=== PATIENT | female | born 1960 | race Two or more races ===

== ENCOUNTER 2022-10-22 18:07 | Emergency (ER) | payer SELFPAY ==
[~2022-10-22] VITALS: Ht 165.1 cm; Wt 83.9 kg
[2022-10-22 18:17] VITALS: BP 134/57; RESP 19; O2SAT 98
[2022-10-22 18:31] LABS: Basophils # (auto) 0.1 10 ^3/uL (0-0.2); Eosinophils # (auto) 0.1 10 ^3/uL (0-0.8); Eosinophils % (auto) 1.5 % (0.0-7.0); Hematocrit 41.1 % (36.0-46.0); Lymphocytes # (auto) 2.5 10 ^3/uL (0.4-5.4); Lymphocytes % (auto) 26.7 % (10.0-50.0); Mean Corpuscular Hemoglobin 31.1 pg (28.0-32.0); Mean Corpuscular Hgb Conc. 33.9 g/dL (32.0-36.0); Mean Corpuscular Volume 91.6 fL (80.0-100.0); Monocytes % (auto) 10.2 % (0.0-12.0); Neutrophils # (auto) 5.7 10 ^3/uL (1.6-8.6); Neutrophils % (auto) 60.6 % (37.0-80.0); Nucleated Red Blood Cells % 0.1 %; Red Blood Cells 4.49 10^6/uL (4.0-5.20); Red Cell Distribution Width 14.2 % (11.8-14.3); White Blood Cell 9.4 10^3/uL (4.4-10.8)
[2022-10-22 18:41] LABS: Urine Bacteria NONE SEEN /hpf (None Seen); Urine Blood Negative /uL (Negative); Urine Clarity Clear (Clear); Urine Color Colorless (Yellow); Urine Protein, UAD TRACE (Negative); Urine Specific Gravity 1.002 (1.001-1.035); Urine Urobilinogen Normal (Negative); Urine WBC 2 /hpf (0 - 5)
[2022-10-22 18:51] LABS: Alanine Aminotransferase 38 U/L (7-40); Albumin 4.5 g/dL (3.2-4.8); Alkaline Phosphatase 82 U/L (46-116); Anion Gap 8.1 (5-15); Aspartate Aminotransferase 27 U/L (13-40); BUN/Creatinine Ratio 8.8 (10.0-20.0); Blood Urea Nitrogen 10 mg/dL (9-23); Calcium 9.3 mg/dL (8.5-10.1); Carbon Dioxide 24.9 mmol/L (20-30); Chloride 106 mmol/L (98-107); Glucose 90 mg/dL (74-106); Potassium 3.9 mmol/L (3.5-5.1); Sodium 139 mmol/L (136-145)
[2022-10-22 18:52] LABS: Bilirubin, Total 0.4 mg/dL (0.2-1.0); Total Protein 7.8 g/dL (5.7-8.2)
[2022-10-22] MEDS ORDERED: DICY10CA PO (20:09)
[2022-10-22] MEDS ORDERED: ZOFR4T PO (20:09)
[2022-10-22] MEDS ORDERED: FAMO20TA10 PO (20:09)
[2022-10-22] MEDS ORDERED: DICYCLOMINE HCL (10MG/ML) 2 ML AMPULE IM ONE (20:15)
[2022-10-22] MEDS ORDERED: FAMOTIDINE 20 MG TAB PO ONE (20:15)
[2022-10-22] MEDS ORDERED: ONDANSETRON ODT 4 MG TAB PO ONE (20:15)
[2022-10-22 20:25] VITALS: PULSE 69
== END 2022-10-22 21:58 | disposition home or self-care (01) ==
LOC: ER 18:07
DX: D35.00 Benign neoplasm of unspecified adrenal gland (principal); N28.1 Cyst of kidney, acquired; K43.9 Ventral hernia without obstruction or gangrene; N39.0 Urinary tract infection, site not specified; R10.32 Left lower quadrant pain; K42.9 Umbilical hernia without obstruction or gangrene; R19.7 Diarrhea, unspecified; E11.9 Type 2 diabetes mellitus without complications; I10 Essential (primary) hypertension; Z79.899 Other long term (current) drug therapy
CPT/HCPCS: 36415; 74176; 80053; 81001; 83690; 84484; 85025; 96372; 99285; J0500; Q0162

== ENCOUNTER 2022-11-22 11:30 | Emergency (ER) | payer MEDICAID ==
[~2022-11-22] VITALS: Ht 165.1 cm; Wt 86.0 kg
[~2022-11-22 11:30] MED LIST: DICY10CA PO; FAMO20TA10 PO; ZOFR4T PO
[2022-11-22 12:13] VITALS: BP 141/81; PULSE 58; RESP 18; O2SAT 96
== END 2022-11-22 14:53 | disposition left against medical advice (07) ==
LOC: ER 11:30
DX: M79.674 Pain in right toe(s) (principal)

== ENCOUNTER 2022-12-17 20:51 | Emergency (ER) | payer MEDICAID ==
[~2022-12-17] VITALS: Ht 165.1 cm; Wt 84.5 kg
[2022-12-17 21:36] LABS: Basophils # (auto) 0.2 10 ^3/uL (0-0.2); Basophils % (auto) 1.5 % (0.0-2.0); Eosinophils # (auto) 0.1 10 ^3/uL (0-0.8); Eosinophils % (auto) 0.9 % (0.0-7.0); Hematocrit 40.9 % (36.0-46.0); Hemoglobin 13.5 g/dL (12.2-16.2); Lymphocytes # (auto) 1.5 10 ^3/uL (0.4-5.4); Mean Corpuscular Hgb Conc. 32.9 g/dL (32.0-36.0); Mean Corpuscular Volume 94.3 fL (80.0-100.0); Monocytes # (auto) 1.1 10 ^3/uL (0-1.3); Monocytes % (auto) 10.6 % (0.0-12.0); Neutrophils # (auto) 7.4 10 ^3/uL (1.6-8.6); Nucleated Red Blood Cells % 0.1 %; Red Blood Cells 4.34 10^6/uL (4.0-5.20); Red Cell Distribution Width 14.6 % (11.8-14.3); White Blood Cell 10.3 10^3/uL (4.4-10.8)
[2022-12-17 21:56] LABS: Alanine Aminotransferase 23 U/L (7-40); Albumin 4.7 g/dL (3.2-4.8); Alkaline Phosphatase 83 U/L (46-116); Anion Gap 8 (5-15); Aspartate Aminotransferase 11 U/L (13-40); BUN/Creatinine Ratio 9.4 (10.0-20.0); Bilirubin, Total 0.5 mg/dL (0.2-1.0); Blood Urea Nitrogen 18 mg/dL (9-23); Calcium 9.5 mg/dL (8.7-10.4); Carbon Dioxide 24 mmol/L (20-30); Chloride 108 mmol/L (98-107); Glucose 118 mg/dL (74-106); Sodium 140 mmol/L (136-145)
[2022-12-17 23:03] LABS: Urine Bacteria FEW /hpf (None Seen); Urine Blood TRACE /uL (Negative); Urine Clarity Clear (Clear); Urine Protein, UAD TRACE (Negative); Urine Specific Gravity 1.005 (1.001-1.035); Urine Urobilinogen Normal (Negative); Urine WBC 4 /hpf (0 - 5)
[2022-12-17 23:08] LABS: Urine Color Straw (Yellow)
[2022-12-18] MEDS ORDERED: ONDANSETRON ODT 4 MG TAB PO ONE
[2022-12-18] MEDS ORDERED: FAMOTIDINE 20 MG TAB PO ONE
[2022-12-18] MEDS ORDERED: DICYCLOMINE HCL 10 MG CAP PO ONE
[2022-12-18] MEDS: HYDROcodone-ACET 10/325MG TAB PO ONE ×2 (00:49→00:52)
[2022-12-18 04:09] VITALS: BP 138/77; PULSE 62; RESP 16; TEMP 98.2; O2SAT 99
== END 2022-12-18 03:18 | disposition home or self-care (01) ==
LOC: ER 20:51
DX: I12.9 Hypertensive chronic kidney disease with stage 1 through stage 4 chronic kidney disease, or unspecified chronic kidney disease (principal); E11.22 Type 2 diabetes mellitus with diabetic chronic kidney disease; N18.9 Chronic kidney disease, unspecified; R07.89 Other chest pain; E11.65 Type 2 diabetes mellitus with hyperglycemia; E87.8 Other disorders of electrolyte and fluid balance, not elsewhere classified; Z79.899 Other long term (current) drug therapy
CPT/HCPCS: 36415; 71046; 80053; 81001; 83735; 84484; 85025; 93005; 99285; J0500; Q0162

== ENCOUNTER 2023-09-16 13:11 | Emergency (ER) | payer MEDICAID ==
[~2023-09-16] VITALS: Ht 165.1 cm; Wt 83.1 kg
[2023-09-16 14:18] VITALS: BP 111/68; PULSE 65; RESP 18; TEMP 98.1; O2SAT 96
[2023-09-16 14:27] LABS: COVID19 ANTIGEN SOFIA FIA NEGATIVE (NEGATIVE)
[2023-09-16] MEDS ORDERED: AMOX875T3 PO (14:48)
[2023-09-16] MEDS ORDERED: ACET-1080 PO (14:48)
[2023-09-16] MEDS: cefTRIAXone SOD 1,000 MG VL IM ONE (14:55)
== END 2023-09-16 15:12 | disposition home or self-care (01) ==
LOC: ER 13:11
DX: J03.90 Acute tonsillitis, unspecified (principal); H65.03 Acute serous otitis media, bilateral; I10 Essential (primary) hypertension; Z79.899 Other long term (current) drug therapy; Z20.822 Contact with and (suspected) exposure to COVID-19
CPT/HCPCS: 36415; 87426; 96372; 99283; J0696

== ENCOUNTER 2024-03-15 10:13 | Inpatient (IN) | payer MEDICAID ==
[~2024-03-15] VITALS: Ht 165.1 cm; Wt 80.0 kg
[~2024-03-15 10:13] MED LIST changes: +ACET-1080 PO; +AMLO1TAB22 PO; +AMOX875T3 PO; +MAGN400T40 PO; +METO-158 PO; +ROSU20TA14 PO
--- NOTE | 2024-03-15 10:24 | ECG ---
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
--- NOTE | 2024-03-15 10:39 | ED.PDOC ---
HPI Comments 63y M who presents to the ED for chief complaint of chest pain. Pt states she has been having chest pain since 9 AM. Pt states the pain is located by the L side of her chest, constant, non-radiating, with no associated exacerbating or relieving factors. Pt has associated shortness of breath but otherwise denies any other symptoms. Pt in the ED, has noted elevated blood pressure of 159/89 with all other vitals in normal range. Pt otherwise denies any other symptoms at this time. Chief Complaint: Chest Pain Time Seen by MD: 10:35 Primary Care Provider: JEROD Reviewed Notes: Nurses Notes, Medications, Allergies Allergies: Coded Allergies: NO KNOWN ALLERGIES (Unverified , 10/22/22) Home Meds Active Scripts Acetaminophen (Tylenol 8 Hour Arthritis) 650 Mg Tab, 650 MG PO TID, #30 TAB Prov:SELAM CURTIS 09/16/23 Amoxicillin Trihydrate (Amoxicillin) 875 Mg Tab, 1 TAB PO BID, #20 TAB Prov:SELAM CURTIS 09/16/23 Famotidine (PEPCID TABLET) 20 Mg Tb, 1 TAB PO BID for 30 Days, #60 TAB 5 Refills Prov:KRISTIN ECHOLS CIVIL DRAFTSMAN 10/22/22 Ondansetron Odt 4MG Tab (ZOFRAN PO) 4 Mg Tb, 1 TAB PO Q8HR, #20 TAB ODT TAB-DISSOLVE IN MOUTH, THEN SWALLOW as needed for nausea vomiting Prov:KRISTIN ECHOLS CIVIL DRAFTSMAN 10/22/22 Dicyclomine Hcl (BENTYL CAPSULE) 10 Mg Cp, 1 CAP PO TID, #20 CAP 11 Refills abdominal cramping Prov:KRISTIN ECHOLS CIVIL DRAFTSMAN 10/22/22 Reported Medications Magnesium Oxide (MAGNESIUM OXIDE) 400 Mg Tab, 1 TAB PO DAILY, #30 TAB 5 Refills 09/03/23 Metoprolol Tartrate (Metoprolol Tartrate) 50 Mg Tab, 50 MG PO BID for 30 Days, MG 09/03/23 Amlodipine Besylate (Amlodipine Besylate) 5 Mg Tab, 5 MG PO DAILY for 30 Days, MG 09/03/23 Rosuvastatin Calcium (Crestor) 20 Mg Tab, 1 TAB PO DAILY, #30 TAB 5 Refills 09/03/23 Information Source: Patient Mode of Arrival: Ambulatory Brought in by: spouse Severity: Moderate Timing: Hours Duration: Since onset Prehospital treatment: None Location: Chest (L) Radiation: No Radiation Quality: Pressure Onset: At Rest Cardiac Risk Factors: Smoker, HTN PE Risk Factors: None History of: None Modifying Factors: Nothing Associated Signs and Symptoms: SOB Past Medical History PAST MEDICAL HISTORY: COPD, HTN Surgical History: Hernia Repair 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 Family History Family History: Reviewed,noncontributory to illness Social History Smoker: Cigarettes Alcohol: Occasionally Drugs: Denies Drug Use Lives In: Home Constitutional: denies: chills, diaphoresis, fatigue, fever, malaise, sweats, weakness, others EENTM: denies: blurred vision, double vision, ear bleeding, ear discharge, ear drainage, ear pain, ear ringing, eye pain, eye redness, hearing loss, mouth pain, mouth swelling, nasal discharge, nose bleeding, nose congestion, nose pain, photophobia, tearing, throat pain, throat swelling, voice changes, others Respiratory: reports: shortness of breath; denies: cough, hemoptysis, orthopnea, SOB at rest, SOB with excertion, stridor, wheezing, others Cardiovascular: reports: chest pain; denies: dizzy spells, diaphoresis, Dyspnea on exertion, edema, irregular heart beat, left arm pain, lightheadedness, palpitations, PND, syncope, others Gastrointestinal: denies: abdomen distended, abdominal pain, blood streaked bowels, constipated, diarrhea, dysphagia, difficulty swallowing, hematemesis, melena, nausea, poor appetite, poor fluid intake, rectal bleeding, rectal pain, vomiting, others Genitourinary: denies: abnormal vagina bleeding, burning, dyspareunia, dysuria, flank pain, frequency, hematuria, incontinence, pain, , vagina discharge, urgency, others Neurological: denies: dizziness, fainting, headache, left sided numbness, left sided weakness, numbness, paresthesia, pre-existing deficit, right sided numbness, right sided weakness, seizure, speech problems, tingling, tremors, weakness, others Musculoskeletal: denies: back pain, gout, joint pain, joint swelling, muscle pain, muscle stiffness, neck pain, others Integumetry: denies: bruises, change in color, change in hair/nails, dryness, laceration, lesions, lumps, rash, wounds, others Allergic/Immunocompromised: denies: Difficulty Healing, Frequent Infections, Hives, Itching, others Hematologic/Lymphatic: denies: anemia, blood clots, easy bleeding, easy bruising, swollen glands, others Endocrine: denies: excessive hunger, excessive sweating, excessive thirst, excessive urination, flushing, intolerance to cold, intolerance to heat, unexplained weight gain, unexplained weight loss, others Psychiatric: denies: anxiety, bipolar disorder, depression, hopeless, panic disorder, schizophrenia, sleepless, suicidal, others All Other Systems: Reviewed and Negative Physical Exam General Appearance: Mild Distress HEENT: Normal ENT Inspection, Pharynx Normal, TMs Normal Neck: Full Range of Motion, Non-Tender, Normal, Normal Inspection Respiratory: Chest Non-Tender, Lungs Clear, No Accessory Muscle Use, No Respiratory Distress, Normal Breath Sounds Cardiovascular: Bradycardia, No Edema, No JVD, No Murmur, No Gallop Breast Exam: Deferred Gastrointestinal: No Organomegaly, Non Tender, No Pulsatile Mass, Normal Bowel Sounds, Soft Genitalia: Deferred Pelvic: Deferred Rectal: Deferred Extremities: No calf tenderness, Normal capillary refill, Normal inspection, Normal range of motion, Non-tender, No pedal edema Musculoskeletal : Apperance: Normal Neurologic: Alert, sexual assault nurse II-XII nml as Tested, No Motor Deficits, Normal Affect, Normal Mood, No Sensory Deficits Cerebellar Function: Normal Reflexes: Normal Skin: Dry, Normal Color, Warm Lymphatic: No Adenopathy EKG EKG : Pulse Rate (adult): 55 [place]: Normal Cardiac Rhythm: NSR Block: None Hypertrophy: LVH ST: Normal Was a procedure done? Was a procedure done?: No CP Differential Dx Differential Diagnosis: Angina, Anxiety / Panic Attack, VT, Pulmonary Embolus, PVC's Differential Diagnosis: HTN Essential, HTN Accelerated Differential Diagnosis: Chest Wall Pain, Pericarditis X-Ray, Labs, Meds, VS Vital Signs Date Time Temp Pulse Resp B/P (MAP) Pulse Ox O2 Delivery O2 Flow Rate FiO2 03/15/24 11:12 51 03/15/24 11:00 58 16 99 Room Air 03/15/24 11:00 98.4 58 16 157/85 (109) 99 98.4 03/15/24 10:39 55 03/15/24 10:24 98.1 62 18 159/89 (112 98 Lab Test 03/15/24 11:16 03/15/24 10:50 03/15/24 10:20 Range/Units Troponin I High Sensitivity 5 5 </=34 ng/L Urine Color Yellow Yellow Urine Clarity Clear Clear Urine pH 5.5 5.0-9.0 Urine Specific [place] 1.020 1.001-1.035 Urine Protein Negative Negative Urine Ketones Negative Negative Urine Blood Negative Negative /uL Urine Nitrite Negative Negative Urine Bilirubin Negative Negative Urine Urobilinogen Normal Negative mg/dL Urine Leukocyte Esterase 2+ Negative /uL Urine RBC 1 0 - 4 /hpf Urine WBC 10 0 - 5 /hpf Urine Squamous Epithelial Cells Few <5 /hpf Urine Bacteria None seen None Seen /hpf Urine Mucus Few None Seen Urine Glucose Normal Normal mg/dL White Blood Count 5.2 4.4-10.8 10^3/uL Red Blood Count 4.61 4.0-5.20 10^6/uL Hemoglobin 14.6 12.2-16.2 g/dL Hematocrit 43.5 36.0-46.0 % Mean Corpuscular Volume 94.3 80.0-100.0 fL Mean Corpuscular Hemoglobin 31.6 28.0-32.0 pg Mean Corpuscular Hemoglobin Concent 33.5 32.0-36.0 g/dL Red Cell Distribution Width 14.3 11.8-14.3 % Platelet Count 280 140-450 10^3/uL Mean Platelet Volume 9.0 6.9-10.8 fL Neutrophils (%) (Auto) 50.0 37.0-80.0 % Lymphocytes (%) (Auto) 35.4 10.0-50.0 % Monocytes (%) (Auto) 9.6 0.0-12.0 % Eosinophils (%) (Auto) 2.9 0.0-7.0 % Basophils (%) (Auto) 2.1 H 0.0-2.0 % Neutrophils # (Auto) 2.6 1.6-8.6 10 ^3/uL Lymphocytes # (Auto) 1.8 0.4-5.4 10 ^3/uL Monocytes # (Auto) 0.5 0-1.3 10 ^3/uL Eosinophils # (Auto) 0.1 0-0.8 10 ^3/uL Basophils # (Auto) 0.1 0-0.2 10 ^3/uL Nucleated Red Blood Cells 0.2 % Prothrombin Time 10.8 9.3-11.8 sec Prothrombin Time INR 1.02 0.9-1.15 Activated Partial Thromboplast Time 26.4 24.5-34.5 SEC D-Dimer, Quantitative 0.35 0.0-0.49 mg/L FEU Sodium Level 139 136-145 mmol/L Potassium Level 4.1 3.5-5.1 mmol/L Chloride Level 108 H 98-107 mmol/L Carbon Dioxide Level 25 20-31 mmol/L Anion Gap 6 5-15 Blood Urea Nitrogen 9 9-23 mg/dL Creatinine 0.92 0.550-1.02 mg/dL Glomerular Filtration Rate Calc 70 >90 mL/min BUN/Creatinine Ratio 9.8 L 10.0-20.0 Serum Glucose 107 H 74-106 mg/dL Calcium Level 10.0 8.7-10.4 mg/dL Magnesium Level Pending Total Bilirubin 0.5 0.2-1.0 mg/dL Aspartate Amino Transferase (AST) 9 L 13-40 U/L Alanine Aminotransferase (ALT) 15 7-40 U/L Alkaline Phosphatase 80 46-116 U/L Total Protein 7.8 5.7-8.2 g/dL Albumin 4.4 3.2-4.8 g/dL Current Medications Medications (Trade) Dose Ordered Sig/Antonio Route Start Time Stop Time Status Last Admin Aspirin 162 mg ONCE ONCE PO 03/15/24 10:30 03/15/24 10:31 DC 03/15/24 10:54 PROCEDURE(s): CXRP - CHEST PORTABLE IMPRESSION: No acute intrathoracic abnormality. The patient was given aspirin 162 mg p.o. The CBC is within normal limits The chemistry panel is within normal limits. The urine test is positive for UTI The patient was being given Rocephin 1 g IV piggyback for the infection A cardiology consult will be obtained. The patient was being admitted at this time. Images Reviewed?: Images reviewed and evaluated by me Time of 1ST Reevaluation: 11:05 Reevaluation 1ST: Unchanged Time of 2ND Reevaluation: 12:17 Reevaluation 2ND: Unchanged Patient Education/Counseling: Diagnosis, Treatment, Prognosis Family Education/Counseling: Diagnosis, Treatment, Prognosis Additional Information - I reviewed the following notes from patient's past medical encounters: - The following tests were ordered, and results were reviewed by me: (Labs, X- Ray, EKG): cbc, cmp, chest x-ray, PTPTT, UA, troponin x3, EKG x3,D-dimer, - Additional information was gathered from interviewing the following independent Historian: (Family, Other Providers, EMT): spouse - I reviewed and agreed with the following test results read by other provider: (X-ray, CT, US): radiologist - I discussed treatments and results with medical personnel and: (consultants, family): spouse Departure 1 Departure Time of Disposition: 12:17 Impression: Primary Impression: Acute myocardial ischemia Additional Impressions: Symptomatic bradycardia Urinary tract infection Qualified Codes: N30.00 - Acute cystitis without hematuria Disposition: ADMITTED INPATIENT Admit to: Tele Condition: Fair Critical Care Note Critical Care Time?: Yes (35 min-critical care time only) Stability Stability form required: Yes Unstable for transfer: Telemetry monitoring (Telemetry monitoring required), ED Physician Assesment (Clinical assesment) Heart Score Heart Score: Heart Score Response (Comments) Value History Slightly Suspicious 0 EKG Normal 0 Age 45-64 1 Risk Factors 1 or 2 risk factors 1 Troponin Normal limit 0 Total 2 I personally scribed for SHAYAN IVY MD ([email or web address]) on 03/15/24 at 10:39. Electronically submitted by Lacy Varghese ([email or web address]). I personally scribed for SHAYAN IVY MD ([email or web address]) on 03/15/24 at 11:19. Electronically submitted by Lacy PAZ). SHAYAN IVY MD Mar 15, 2024 10:39
[2024-03-15 10:53] LABS: Basophils # (auto) 0.1 10 ^3/uL (0-0.2); Basophils % (auto) 2.1 % (0.0-2.0); Eosinophils # (auto) 0.1 10 ^3/uL (0-0.8); Eosinophils % (auto) 2.9 % (0.0-7.0); Hematocrit 43.5 % (36.0-46.0); Hemoglobin 14.6 g/dL (12.2-16.2); Lymphocytes # (auto) 1.8 10 ^3/uL (0.4-5.4); Lymphocytes % (auto) 35.4 % (10.0-50.0); Mean Corpuscular Hemoglobin 31.6 pg (28.0-32.0); Mean Corpuscular Hgb Conc. 33.5 g/dL (32.0-36.0); Mean Corpuscular Volume 94.3 fL (80.0-100.0); Monocytes # (auto) 0.5 10 ^3/uL (0-1.3); Monocytes % (auto) 9.6 % (0.0-12.0); Neutrophils # (auto) 2.6 10 ^3/uL (1.6-8.6); Nucleated Red Blood Cells % 0.2 %; Platelet Count (auto) 280 10^3/uL (140-450); Red Blood Cells 4.61 10^6/uL (4.0-5.20); Red Cell Distribution Width 14.3 % (11.8-14.3); White Blood Cell 5.2 10^3/uL (4.4-10.8)
[2024-03-15] MEDS: ASPirin 81 mg TAB PO ONE (10:54)
--- NOTE | 2024-03-15 10:54 | DVH ---
XY CHEST PORTABLE, HISTORY: CHEST PAIN COMPARISON: None None TECHNICAL DATA: 1 view of the chest was obtained. FINDINGS: Lines and tubes: None Cardiomediastinal silhouette: normal Pulmonary vasculature: normal Lung expansion: normal Lung airspace: normal Lung interstitium: normal Pleura: normal Pneumothorax: no Bones: Unremarkable Other: no IMPRESSION: No acute intrathoracic abnormality.
[2024-03-15 10:56] LABS: Urine Bacteria None Seen /hpf (None Seen)
[2024-03-15 11:11] LABS: INR 1.02 (0.9-1.15); Partial Thromboplastin Time 26.4 SEC (24.5-34.5); Prothrombin Time 10.8 sec (9.3-11.8)
[2024-03-15 11:14] LABS: Alanine Aminotransferase 15 U/L (7-40); Albumin 4.4 g/dL (3.2-4.8); Alkaline Phosphatase 80 U/L (46-116); Anion Gap 6 (5-15); Aspartate Aminotransferase 9 U/L (13-40); BUN/Creatinine Ratio 9.8 (10.0-20.0); Bilirubin, Total 0.5 mg/dL (0.2-1.0); Blood Urea Nitrogen 9 mg/dL (9-23); Carbon Dioxide 25 mmol/L (20-31); Chloride 108 mmol/L (98-107); Glucose 107 mg/dL (74-106); Potassium 4.1 mmol/L (3.5-5.1); Sodium 139 mmol/L (136-145); Total Protein 7.8 g/dL (5.7-8.2)
[2024-03-15 11:17] LABS: Urine Blood Negative /uL (Negative); Urine Clarity Clear (Clear); Urine Color Yellow (Yellow); Urine Mucus FEW (None Seen); Urine Protein, UAD Negative (Negative); Urine Squamous Epithelial Cell FEW /hpf (<5); Urine Urobilinogen Normal (Negative); Urine WBC 10 /hpf (0 - 5); Urine pH 5.5 (5.0-9.0)
[2024-03-15] MEDS ORDERED: MORPHINE SULFATE 4 MG/ML SYR/VIAL IV PRN (12:00)
[2024-03-15] MEDS ORDERED: ONDANSETRON HCL 4 MG/2 ML VIAL IV PRN (12:00)
[2024-03-15] MEDS ORDERED: NITROGLYCERIN 0.4 MG SL TAB SL PRN ×2 (12:00)
--- NOTE | 2024-03-15 12:00 | DVHHP2 ---
History of Present Illness Reason for Visit: chest pain History of Present Illness 63-year-old female past medical history hyperlipidemia COPD hypertension hernia repair chief complaint patient states at 9:00 a.m. this morning she did a stress and now she was complaining of chest pain midsternal pain she states it feels like a pressure pain that is off and on she states the pain is worse with movement nothing makes it better there was no calf pain or leg swelling she does complain of shortness of the breath. Patient does state this pain is also radiates to her back. When speaking with the patient she states he does see a solution design engineer and he diagnosed with a fast heart rate but he did not give her any medication for that. Patient states he has a cardiology visit March 20, 2024 very when evaluating patient's labs and imaging aspirin was given CBC was unremarkable CMP unremarkable glucose was 107 troponin was negative chest x-ray unremarkable. With these findings we will admit patient for further workup and care and consult Cardiology consult Past Medical History Hyperlipidemia COPD hypertension Past Surgical History Hernia repair Family History Reviewed, non-contributory to the management of this case. Past Social History Patient states smokes by history but off and on she does social smoking but denies drug or alcohol use Review of Systems Constitutional: No: Fever, Chills, Sweats, Weakness, Malaise, Other Eyes: No: Pain, Vision change, Conjunctivae inflammation, Eyelid inflammation, Other, Redness ENT: No: Ear pain, Ear discharge, Nose pain, Nose discharge, Nose congestion, Mouth pain, Mouth swelling, Throat pain, Throat swelling, Other Respiratory: No: Cough, Dry, Shortness of breath, SOB with excertion, Wheezing, Hemoptysis, Pleuritic Pain, Sputum, Wheezing, Other Cardiovascular: Chest Pain; No: Palpitations, Orthopnea, Paroxysmal Noc. Dyspnea, Edema, Lt Headedness, Other Gastrointestinal: No: Nausea, Vomiting, Abdominal Pain, Diarrhea, Constipation, Melena, Hematochezia, Other Genitourinary: No Dysuria, No Frequency, No Incontinence, No Hematuria, No Retention, No Other Musculoskeletal: No: other, neck pain, shoulder pain, arm pain, back pain, hand pain, leg pain, foot pain Skin: No: Rash, Lesions, Jaundice, Bruising, Other Neurological: No: Weakness, Numbness, Incoordination, Change in speech, Confusion, Seizures, Other Allergies: Coded Allergies: NO KNOWN ALLERGIES (Unverified , 10/22/22) Exam Vital Signs Vital Signs Date Time Temp Pulse Resp B/P (MAP) Pulse Ox O2 Delivery O2 Flow Rate FiO2 03/15/24 11:12 51 03/15/24 11:00 16 99 Room Air 03/15/24 11:00 98.4 157/85 (109) 98.4 General Appearance: Alert, Oriented X3, Cooperative, No acute distress HEENT: Atraumatic, PERRLA, EOMI, Mucous membr. moist/pink Respiratory: Clear to auscultation, Normal air movement Cardiovascular: Regular rate, Normal S1, Normal S2, No murmurs Abdominal: Normal bowel sounds, Soft, No tenderness, No hepatospenomegaly, No masses Extremities: No clubbing, No cyanosis, No edema, Normal pulses, No tenderness/swelling Skin: No rashes, No breakdown, No significant lesion Neuro: Normal gait, Normal speech, Strength at 5/5 X4 ext, Normal tone, Sensation intact, Cranial nerves 3-12 NL Psych/Mental Status: Mental status NL, Mood NL Labs/Xrays Chest x-ray unremarkable I reviewed labs, imaging CT scan abdomen pelvis, EKG and all diagnostic studies on this patient from ED records and the medical chart Labs Test 03/15/24 11:16 03/15/24 10:50 03/15/24 10:20 Range/Units Urine Color Yellow Yellow Urine Clarity Clear Clear Urine pH 5.5 5.0-9.0 Urine Specific [place] 1.020 1.001-1.035 Urine Protein Negative Negative Urine Ketones Negative Negative Urine Blood Negative Negative /uL Urine Nitrite Negative Negative Urine Bilirubin Negative Negative Urine Urobilinogen Normal Negative mg/dL Urine Leukocyte Esterase 2+ Negative /uL Urine RBC 1 0 - 4 /hpf Urine WBC 10 0 - 5 /hpf Urine Squamous Epithelial Cells Few <5 /hpf Urine Bacteria None seen None Seen /hpf Urine Mucus Few None Seen Urine Glucose Normal Normal mg/dL White Blood Count 5.2 4.4-10.8 10^3/uL Red Blood Count 4.61 4.0-5.20 10^6/uL Hemoglobin 14.6 12.2-16.2 g/dL Hematocrit 43.5 36.0-46.0 % Mean Corpuscular Volume 94.3 80.0-100.0 fL Mean Corpuscular Hemoglobin 31.6 28.0-32.0 pg Mean Corpuscular Hemoglobin Concent 33.5 32.0-36.0 g/dL Red Cell Distribution Width 14.3 11.8-14.3 % Platelet Count 280 140-450 10^3/uL Mean Platelet Volume 9.0 6.9-10.8 fL Neutrophils (%) (Auto) 50.0 37.0-80.0 % Lymphocytes (%) (Auto) 35.4 10.0-50.0 % Monocytes (%) (Auto) 9.6 0.0-12.0 % Eosinophils (%) (Auto) 2.9 0.0-7.0 % Basophils (%) (Auto) 2.1 H 0.0-2.0 % Neutrophils # (Auto) 2.6 1.6-8.6 10 ^3/uL Lymphocytes # (Auto) 1.8 0.4-5.4 10 ^3/uL Monocytes # (Auto) 0.5 0-1.3 10 ^3/uL Eosinophils # (Auto) 0.1 0-0.8 10 ^3/uL Basophils # (Auto) 0.1 0-0.2 10 ^3/uL Nucleated Red Blood Cells 0.2 % Prothrombin Time 10.8 9.3-11.8 sec Prothrombin Time INR 1.02 0.9-1.15 Activated Partial Thromboplast Time 26.4 24.5-34.5 SEC D-Dimer, Quantitative 0.35 0.0-0.49 mg/L FEU Sodium Level 139 136-145 mmol/L Potassium Level 4.1 3.5-5.1 mmol/L Chloride Level 108 H 98-107 mmol/L Carbon Dioxide Level 25 20-31 mmol/L Anion Gap 6 5-15 Blood Urea Nitrogen 9 9-23 mg/dL Creatinine 0.92 0.550-1.02 mg/dL Glomerular Filtration Rate Calc 70 >90 mL/min BUN/Creatinine Ratio 9.8 L 10.0-20.0 Serum Glucose 107 H 74-106 mg/dL Calcium Level 10.0 8.7-10.4 mg/dL Total Bilirubin 0.5 0.2-1.0 mg/dL Aspartate Amino Transferase (AST) 9 L 13-40 U/L Alanine Aminotransferase (ALT) 15 7-40 U/L Alkaline Phosphatase 80 46-116 U/L Total Protein 7.8 5.7-8.2 g/dL Albumin 4.4 3.2-4.8 g/dL Assessment/Plan Assessment/Plan acute chest pain r/o acslikely n stemi/Unstable angina monitor for chest pain trop negative x2 cont to check trop x2 q4-6 then until plateau if elevated repeat ekg, echo ordered Cards consult fu recs ordered cesar ordered lipid panel fu results ordered statin reduce the cholesterol cont home does of metoprolol and losartan ordered echo fu result cxr normal ordered ddimer fu results acute right knee pain xray of knee fu results ordered morphine as needed for pain fall precaution chronic problems hld copd htn fen/ppx diet hl no gi ppx since no hx of gerds or gi bleed scd plan admit to tele cards consult fu recs Plan discussed with: Patient Date of Service: Mar 15, 2024 Billing Provider: IVAN MURILLO DNP Common Visit Codes: [id number] INP/OBS CARE (HIGH) IVAN MURILLO DNP Mar 15, 2024 12:00
--- NOTE | 2024-03-15 12:34 | DVH ---
CLINICAL INDICATION: Pain TECHNIQUE: 3 radiographic views of the right knee were obtained. Comparison: None FINDINGS/IMPRESSION: There is no evidence of acute fracture or dislocation. Superior patellar enthesophyte. The visualized joint space is well maintained. The alignment is anatomical. There is no radiopaque foreign body.
--- NOTE | 2024-03-15 16:52 | ECG ---
[facility] Test Date: 2024-03-15 Test Time: 11:12:15 Pat Name: EARNEST NAYAK Department: ED Room: [address] [place] [address] Gender: F Relay Tester: GEETHA : 1960 Requested By: PONCHO CASTRO Order Number: [id number] Reading MD: Vivek Hughes Measurements Intervals [place] Rate: 51 P: -9 HI: 173 QRS: 19 QRSD: 91 T: 63 QT: 473 QTc: 436 Interpretive Statements Sinus rhythm Anterior infarct, old Electronically Signed On 03-18-2024 15:47:59 PST by Vivek Hughes Please click the below link to view image of tracing.
[2024-03-15 20:52] VITALS: BP 180/88; PULSE 64; RESP 18; TEMP 98.1; O2SAT 99
--- NOTE | 2024-03-15 21:38 | DVHINCON2 ---
Date of service: Mar 15, 2024 History of Present Illness HPI Patient is a 63-year-old female who presented to the hospital with chest discomfort and shortness of breath. She mentioned that when she woke up in the morning after extend in her upper extremities she did feel chest discomfort. Chest discomfort repeatedly happened today. Each time the chest discomfort happened was only lasting for few seconds. She has been experiencing right ear pain for the past day. She had been having low back pain also. She also complains of occasional cough. Cardiology was involved for cardiac aspects of care. Patient is known to our practice from outside. Home Meds Active Scripts Acetaminophen (Tylenol 8 Hour Arthritis) 650 Mg Tab, 650 MG PO TID, #30 TAB Prov:SELAM CURTIS 09/16/23 Amoxicillin Trihydrate (Amoxicillin) 875 Mg Tab, 1 TAB PO BID, #20 TAB Prov:SELAM CURTIS PA 09/16/23 Famotidine (PEPCID TABLET) 20 Mg Tb, 1 TAB PO BID for 30 Days, #60 TAB 5 Refills Prov:KRISTIN ECHOLS Q ARC CUTTER PLASMA ARC 10/22/22 Ondansetron Odt 4MG Tab (ZOFRAN PO) 4 Mg Tb, 1 TAB PO Q8HR, #20 TAB ODT TAB-DISSOLVE IN MOUTH, THEN SWALLOW as needed for nausea vomiting Prov:KRISTIN ECHOLS Q ARC CUTTER PLASMA ARC 10/22/22 Dicyclomine Hcl (BENTYL CAPSULE) 10 Mg Cp, 1 CAP PO TID, #20 CAP 11 Refills abdominal cramping Prov:KRISTIN ECHOLS Q ARC CUTTER PLASMA ARC 10/22/22 Reported Medications Magnesium Oxide (MAGNESIUM OXIDE) 400 Mg Tab, 1 TAB PO DAILY, #30 TAB 5 Refills 09/03/23 Metoprolol Tartrate (Metoprolol Tartrate) 50 Mg Tab, 50 MG PO BID for 30 Days, MG 09/03/23 Amlodipine Besylate (Amlodipine Besylate) 5 Mg Tab, 5 MG PO DAILY for 30 Days, MG 09/03/23 Rosuvastatin Calcium (Crestor) 20 Mg Tab, 1 TAB PO DAILY, #30 TAB 5 Refills 09/03/23 Past Medical History Others Past medical history includes hypertension, hyperlipidemia, COPD, old history of hernia repair, prediabetes and history of SVT. She is active cigarette smoker. Patient Family History: Cardiovascular disease G8 MOTHER FH: lung cancer G8 MOTHER Smoker: Positive Alocohol: None Drugs: None Lives with: With family Review of Systems Constitutional: No symptom reported Ears, Nose, & Throat: No symptom reported Eyes: No symptom reported Cardiovascular: Chest Pain All Other Systems 14 point review of system was performed. Relevant findings as per above and as per HPI. Otherwise negative. H&P Exam Vital Signs Vital Signs Date Time Temp Pulse Resp B/P (MAP) Pulse Ox O2 Delivery O2 Flow Rate FiO2 03/15/24 20:52 98.1 64 18 180/88 (118) 99 98.1 03/15/24 11:00 Room Air General Appeara: Well developed, Obese Head Exam: Normal inspection Neck Exam: Normal inspection Eye Exam: bilateral eye PERRL Mouth: Normal Inspection Pulmonary/Respiratory: Rhonci Cardiovascular/Chest: Normal inspection, Systolic murmur Peripheral Pulses: 2+ carotid (R), 2+ carotid (L), 2+ femoral (R), 2+ femoral (L), 2+ dorsalis pedis (R), 2+ dorsalis pedis (L), 2+ Radial (R), 2+ Radial (L) Abdominal Exam: Normal bowel sounds, Soft, No hepatospenomegaly Neuro/Mental St: Alert, Oriented Appearance: Appropriate appearance Eye contact/ Speech: Cooperative Labs/Xrays Labs Test 03/15/24 11:16 03/15/24 10:50 03/15/24 10:20 Range/Units Troponin I High Sensitivity 5 </=34 ng/L Urine Color Yellow Yellow Urine Clarity Clear Clear Urine pH 5.5 5.0-9.0 Urine Specific [place] 1.020 1.001-1.035 Urine Protein Negative Negative Urine Ketones Negative Negative Urine Blood Negative Negative /uL Urine Nitrite Negative Negative Urine Bilirubin Negative Negative Urine Urobilinogen Normal Negative mg/dL Urine Leukocyte Esterase 2+ Negative /uL Urine RBC 1 0 - 4 /hpf Urine WBC 10 0 - 5 /hpf Urine Squamous Epithelial Cells Few <5 /hpf Urine Bacteria None seen None Seen /hpf Urine Mucus Few None Seen Urine Glucose Normal Normal mg/dL White Blood Count 5.2 4.4-10.8 10^3/uL Red Blood Count 4.61 4.0-5.20 10^6/uL Hemoglobin 14.6 12.2-16.2 g/dL Hematocrit 43.5 36.0-46.0 % Mean Corpuscular Volume 94.3 80.0-100.0 fL Mean Corpuscular Hemoglobin 31.6 28.0-32.0 pg Mean Corpuscular Hemoglobin Concent 33.5 32.0-36.0 g/dL Red Cell Distribution Width 14.3 11.8-14.3 % Platelet Count 280 140-450 10^3/uL Mean Platelet Volume 9.0 6.9-10.8 fL Neutrophils (%) (Auto) 50.0 37.0-80.0 % Lymphocytes (%) (Auto) 35.4 10.0-50.0 % Monocytes (%) (Auto) 9.6 0.0-12.0 % Eosinophils (%) (Auto) 2.9 0.0-7.0 % Basophils (%) (Auto) 2.1 H 0.0-2.0 % Neutrophils # (Auto) 2.6 1.6-8.6 10 ^3/uL Lymphocytes # (Auto) 1.8 0.4-5.4 10 ^3/uL Monocytes # (Auto) 0.5 0-1.3 10 ^3/uL Eosinophils # (Auto) 0.1 0-0.8 10 ^3/uL Basophils # (Auto) 0.1 0-0.2 10 ^3/uL Nucleated Red Blood Cells 0.2 % Prothrombin Time 10.8 9.3-11.8 sec Prothrombin Time INR 1.02 0.9-1.15 Activated Partial Thromboplast Time 26.4 24.5-34.5 SEC D-Dimer, Quantitative 0.35 0.0-0.49 mg/L FEU Sodium Level 139 136-145 mmol/L Potassium Level 4.1 3.5-5.1 mmol/L Chloride Level 108 H 98-107 mmol/L Carbon Dioxide Level 25 20-31 mmol/L Anion Gap 6 5-15 Blood Urea Nitrogen 9 9-23 mg/dL Creatinine 0.92 0.550-1.02 mg/dL Glomerular Filtration Rate Calc 70 >90 mL/min BUN/Creatinine Ratio 9.8 L 10.0-20.0 Serum Glucose 107 H 74-106 mg/dL Calcium Level 10.0 8.7-10.4 mg/dL Magnesium Level 1.9 1.6-2.6 mg/dL Total Bilirubin 0.5 0.2-1.0 mg/dL Aspartate Amino Transferase (AST) 9 L 13-40 U/L Alanine Aminotransferase (ALT) 15 7-40 U/L Alkaline Phosphatase 80 46-116 U/L Total Protein 7.8 5.7-8.2 g/dL Albumin 4.4 3.2-4.8 g/dL Assessment/Plan Plan Patient is a 63-year-old female who presented to the hospital with chest discomfort and shortness of breath. She mentioned that when she woke up in the morning after extend in her upper extremities she did feel chest discomfort. Chest discomfort repeatedly happened today. Each time the chest discomfort happened was only lasting for few seconds. She has been experiencing right ear pain for the past day. She had been having low back pain also. She also complains of occasional cough. Cardiology was involved for cardiac aspects of care. Patient is known to our practice from outside Not in acute distress. No JVD. Mucosa is pink and wet. No carotid bruit. Lungs are clear to auscultation. Cardiac: Regular, no thrill/gallop. Abdomen is soft. There is no hepatomegaly. Extremities do not reveal edema. Dorsalis pedis is 2+ bilateral. Past medical history includes hypertension, hyperlipidemia, COPD, old history of hernia repair, prediabetes and history of SVT. She is active cigarette smoker. Nuclear stress test of June 07, 2023 (performed in the office) revealed normal perfusion, ejection fraction of 73% and TID of 0.92 Echocardiogram of May 24, 2023 (performed in the office) revealed ejection fraction of more than 70%, mild concentric left ventricular hypertrophy, mild left atrial enlargement, moderate MR, [id number] TR and right ventricular systolic pressure of 29 mm Hg Troponin: 5-5 Creatinine: 0.92 D-dimer was normal at 0.35 Chest x-ray revealed: No acute intrathoracic abnormality. Right knee x-ray revealed: There is no evidence of acute fracture or dislocation. Superior patellar enthesophyte. The visualized joint space is well maintained. The alignment is anatomical. There is no radiopaque foreign body. EKG revealed sinus rhythm and occasions of sinus bradycardia with no specific ST-T changes Patient is a 63-year-old female who presented with atypical chest discomfort. Serial high sensitive troponin has been negative. Does have normal nuclear stress test performed in May 2023. Presentation is not considered acute coronary syndrome. URI could have contributed to the clinical picture. Blood pressure was 180/85 in emergency room. It is of note that she had missed her outside antihypertensive medications. Atypical chest pain URI Hypertension Hyperlipidemia COPD Cardiac suggestion for management: Managed on telemetry Control hypertension Follow-up electrolytes and kidney function tests and correct abnormalities Evaluation and management of URI as per primary team Cardiac-boykin, the patient be followed as outpatient Further evaluation and management depends on the above and clinical course Thank you for consultation A total of 55 minutes was spent reviewing the patient record, examining the patient, making a diagnostic and therapeutic plan, discussing this plan with medical personnel, following up on diagnostic studies and following the patient for clinical stability excluding any and all procedures. At least 50% of this time was spent in direct, [id number] contact. Thank you for allowing me to participate in this patient's care. Further recommendations will depend on patient's clinical course. Please do not hesitate to contact me if you have any questions or concerns. This medical document was created using electronic medical record system with [employer] computerized dictation system. Although this document has been carefully reviewed, there may still be some phonetic and typographical errors. These areas are purely typographical due to the imperfection of the software programs, and do not reflect any compromise in the patient's medical care. Plan discussed with: Patient, Other (Nurse) SAGRARIO ROJAS MD Mar 15, 2024 21:37
[2024-03-15] MEDS ORDERED: ATORVASTATIN 20 MG TAB PO SCH (22:00)
--- NOTE | 2024-03-16 07:17 | ECG ---
[facility] Test Date: 2024-03-15 Test Time: 13:42:10 Pat Name: EARNEST NAYAK Department: ED Room: [address] [place] [address] Gender: F Class B Driver: GEETHA : 1960 Requested By: PONCHO CASTRO Order Number: [id number] Reading MD: Vivek Hughes Measurements Intervals Lyle Rate: 65 P: -20 AL: 162 QRS: 20 QRSD: 83 T: 72 QT: 440 QTc: 458 Interpretive Statements Sinus rhythm Consider left ventricular hypertrophy Anterior Q waves, possibly due to LVH Electronically Signed On 03-18-2024 15:48:53 PST by Vivek Hughes Please click the below link to view image of tracing.
[2024-03-16] MEDS ORDERED: ASPirin 81 mg TAB PO SCH (10:00)
== END 2024-03-15 21:14 | disposition left against medical advice (07) | DRG 199 ==
LOC: ER 10:13 → TELE 11:54
PROVIDERS: ADMIT Nurse Practitioner Family; ATTEND Nurse Practitioner Family
DX: I16.0 Hypertensive urgency (principal); E78.5 Hyperlipidemia, unspecified; J06.9 Acute upper respiratory infection, unspecified; I25.9 Chronic ischemic heart disease, unspecified; F17.210 Nicotine dependence, cigarettes, uncomplicated; I10 Essential (primary) hypertension; Z53.29 Procedure and treatment not carried out because of patient's decision for other reasons; J44.9 Chronic obstructive pulmonary disease, unspecified; N39.0 Urinary tract infection, site not specified; Z82.49 Family history of ischemic heart disease and other diseases of the circulatory system; Z85.118 Personal history of other malignant neoplasm of bronchus and lung; Z79.899 Other long term (current) drug therapy
CPT/HCPCS: 36415; 71045; 73562; 80053; 81001; 83735; 84484; 85025; 85379; 85610; 85730; 93005; 99291; G0378

== ENCOUNTER 2024-07-16 09:29 | Emergency (ER) | payer MEDICAID ==
[~2024-07-16] VITALS: Ht 165.1 cm; Wt 82.5 kg
--- NOTE | 2024-07-16 11:46 | ED.PDOC ---
History of Present Illness HPI Comments 64-year-old female presents to the ED with a c/o nonradiating right dorsal foot pain s/p fall x yesterday. Patient states that she was being chased by a dog and fell and possibly twisted her foot. Patient states that it is now painful for her to walk on her foot. Patient has swelling to the dorsal aspect of her right foot. Patient denies any deformities. Denies previous fractures to the affected extremity. Denies numbness, burning, tingling. No other symptoms or modifying factors present at this time. Chief Complaint: Lower Extremity Time Seen by MD: 11:22 Primary Care Provider: STUART Reviewed Notes: Nurses Notes, Medications, Allergies Allergies: Coded Allergies: NO KNOWN ALLERGIES (Unverified , 10/22/22) Home Meds Active Scripts Naproxen (Naproxen) 375 Mg Tab, 1 TAB PO BID for 10 Days, #20 TAB 0 Refills Prov:ELODIA WADE TRADING SPECIALIST 07/16/24 Acetaminophen (Tylenol 8 Hour Arthritis) 650 Mg Tab, 650 MG PO TID, #30 TAB Prov:SELAM CURTIS 09/16/23 Amoxicillin Trihydrate (Amoxicillin) 875 Mg Tab, 1 TAB PO BID, #20 TAB Prov:SELAM CURTIS 09/16/23 Famotidine (PEPCID TABLET) 20 Mg Tb, 1 TAB PO BID for 30 Days, #60 TAB 5 Refills Prov:KRISTIN ECHOLS TRADING SPECIALIST 10/22/22 Ondansetron Odt 4MG Tab (ZOFRAN PO) 4 Mg Tb, 1 TAB PO Q8HR, #20 TAB ODT TAB-DISSOLVE IN MOUTH, THEN SWALLOW as needed for nausea vomiting Prov:KRISTIN ECHOLS TRADING SPECIALIST 10/22/22 Dicyclomine Hcl (BENTYL CAPSULE) 10 Mg Cp, 1 CAP PO TID, #20 CAP 11 Refills abdominal cramping Prov:KRISTIN ECHOLS TRADING SPECIALIST 10/22/22 Reported Medications Magnesium Oxide (MAGNESIUM OXIDE) 400 Mg Tab, 1 TAB PO DAILY, #30 TAB 5 Refills 09/03/23 Metoprolol Tartrate (Metoprolol Tartrate) 50 Mg Tab, 50 MG PO BID for 30 Days, MG 09/03/23 Amlodipine Besylate (Amlodipine Besylate) 5 Mg Tab, 5 MG PO DAILY for 30 Days, MG 09/03/23 Rosuvastatin Calcium (Crestor) 20 Mg Tab, 1 TAB PO DAILY, #30 TAB 5 Refills 09/03/23 Information Source: Patient Mode of Arrival: Ambulatory Severity: Moderate Timing: Days Duration: Since onset Prehospital treatment: None Past Medical History PAST MEDICAL HISTORY: COPD, HTN Surgical History: Hernia Repair COMPENSATION ADMINISTRATOR History: No Pertinent COMPENSATION ADMINISTRATOR History Family History Family History: Reviewed,noncontributory to illness Social History Smoker: Cigarettes Alcohol: Occasionally Drugs: Denies Drug Use Lives In: Home Constitutional: denies: chills, diaphoresis, fatigue, fever, malaise, sweats, weakness, others EENTM: denies: blurred vision, double vision, ear bleeding, ear discharge, ear drainage, ear pain, ear ringing, eye pain, eye redness, hearing loss, mouth pain, mouth swelling, nasal discharge, nose bleeding, nose congestion, nose pain, photophobia, tearing, throat pain, throat swelling, voice changes, others Respiratory: denies: cough, hemoptysis, orthopnea, SOB at rest, shortness of breath, SOB with excertion, stridor, wheezing, others Cardiovascular: denies: chest pain, dizzy spells, diaphoresis, Dyspnea on exertion, edema, irregular heart beat, left arm pain, lightheadedness, palpitations, PND, syncope, others Gastrointestinal: denies: abdomen distended, abdominal pain, blood streaked bowels, constipated, diarrhea, dysphagia, difficulty swallowing, hematemesis, melena, nausea, poor appetite, poor fluid intake, rectal bleeding, rectal pain, vomiting, others Genitourinary: denies: abnormal vagina bleeding, burning, dyspareunia, dysuria, flank pain, frequency, hematuria, incontinence, pain, , vagina discharge, urgency, others Neurological: denies: dizziness, fainting, headache, left sided numbness, left sided weakness, numbness, paresthesia, pre-existing deficit, right sided numbness, right sided weakness, seizure, speech problems, tingling, tremors, weakness, others Musculoskeletal: reports: muscle pain; denies: back pain, gout, joint pain, joint swelling, muscle stiffness, neck pain, others Integumetry: denies: bruises, change in color, change in hair/nails, dryness, laceration, lesions, lumps, rash, wounds, others Allergic/Immunocompromised: denies: Difficulty Healing, Frequent Infections, Hives, Itching, others Hematologic/Lymphatic: denies: anemia, blood clots, easy bleeding, easy bruising, swollen glands, others Endocrine: denies: excessive hunger, excessive sweating, excessive thirst, excessive urination, flushing, intolerance to cold, intolerance to heat, unexplained weight gain, unexplained weight loss, others Psychiatric: denies: anxiety, bipolar disorder, depression, hopeless, panic disorder, schizophrenia, sleepless, suicidal, others All Other Systems: Reviewed and Negative Physical Exam General Appearance: No Apparent Distress, Normal HEENT: Normal ENT Inspection, Pharynx Normal, TMs Normal Neck: Full Range of Motion, Non-Tender, Normal, Normal Inspection Respiratory: Chest Non-Tender, Lungs Clear, No Accessory Muscle Use, No Respiratory Distress, Normal Breath Sounds Cardiovascular: No Edema, No JVD, No Murmur, No Gallop, Normal Peripheral Pulses, Regular Rate/Rhythm Breast Exam: Deferred Gastrointestinal: No Organomegaly, Non Tender, No Pulsatile Mass, Normal Bowel Sounds, Soft Genitalia: Deferred Pelvic: Deferred Rectal: Deferred Extremities: No calf tenderness, Normal capillary refill, Normal inspection, Normal range of motion, No pedal edema, Swelling, Tender, Other (Mild swelling to dorsal aspect of right foot, plantar flexion strong, no achilies pain, no pain to lateral or medial malleous) Musculoskeletal : Apperance: Normal Neurologic: Alert, scanning coordinator II-XII nml as Tested, No Motor Deficits, Normal Affect, Normal Mood, No Sensory Deficits Cerebellar Function: Normal Reflexes: Normal Skin: Dry, Normal Color, Warm Lymphatic: No Adenopathy Was a procedure done? Was a procedure done?: No Images 1 - The mild swelling to the dorsal aspect. No visible ecchymosis. Dorsiflexion plantar flexion strong. Localized TTP to the Lisfranc joints. No pain to the medial lateral malleolus. No pain to the Achilles tendon Differential Dx Considerations may include: Sprain fracture dislocation X-Ray, Labs, Meds, VS Vital Signs Date Time Temp Pulse Resp B/P (MAP) Pulse Ox O2 Delivery O2 Flow Rate FiO2 07/16/24 13:22 98.7 66 16 157/71 (99) 97 98.7 07/16/24 13:22 68 17 97 Room Air 07/16/24 09:43 97.8 63 20 150/77 (642) 97 97.8 PATIENT: MELISSA NAYAKT: [id number] UNIT: [id number] : 1960 LOC: ER ROOM / BED: / AGE / SEX: 64 / F ADM STATUS: REG ER SERVICE 1120 ORDERING PHYSICIAN: ELODIA WADE NP PROCEDURE(s): RFOOT - R FOOT 3 VIEW XRAY REASON: r/o fracture ORDER NUMBER(s): [id number], ACCESSION NUMBER(s): [id number] X-ray right foot Technique: AP lateral and oblique views REASON FOR EXAM: r/o fracture FINDINGS: Nondisplaced oblique fractures of the bases of the 3rd and 4th metatarsal bones. IMPRESSION: 1. Nondisplaced fractures of the bases of the 3rd and 4th metatarsals. ATED BY: AIME BELCHER MD DICTATED DATE/TIME: 07/16/24 120 SIGNED BY: AIME BELCHER MD SIGNED DATE/TIME: 07/16/24 1204 CC: X-Ray, Labs, Meds, VS Comment Nondisplaced fractures of the bases of the 3rd and 4th metatarsals. Posterior short leg splint, strict NWB, RICE, ortho follow up in 3-5 days Over the counter NSAIDs as needed Crutches and crutch training provided Strict return precautions discussed Time of 1ST Reevaluation: 11:52 Reevaluation 1ST: Improved Patient Education/Counseling: Diagnosis, Treatment, Need For Follow Up Family Education/Counseling: No Family Present Departure 1 Departure Time of Disposition: 12:23 Impression: Primary Impression: Metatarsal bone fracture Qualified Codes: S92.334A - Nondisplaced fracture of third metatarsal bone, right foot, initial encounter for closed fracture Disposition: 01 HOME / SELF CARE / HOMELESS Condition: Fair e-Prescriptions Naproxen (Naproxen) 375 Mg Tab 1 TAB PO BID for 10 Days, #20 TAB 0 Refills Prov: ELODIA WADE TRADING SPECIALIST 07/16/24 Discharged With: Self Critical Care Note Critical Care Time?: No Stability Stability form required: No I personally scribed for ELODIA WADE NP ([email or web address]) on 07/16/24 at 11:46. Electronically submitted by Domingo Roa ([email or web address]). ELODIA WADE NP July 16, 2024 11:46
--- NOTE | 2024-07-16 12:06 | DVH ---
X-ray right foot Technique: AP lateral and oblique views REASON FOR EXAM: r/o fracture FINDINGS: Nondisplaced oblique fractures of the bases of the 3rd and 4th metatarsal bones. IMPRESSION: 1. Nondisplaced fractures of the bases of the 3rd and 4th metatarsals.
[2024-07-16] MEDS ORDERED: NAPR-957 PO (12:24)
[2024-07-16 13:22] VITALS: BP 157/71; PULSE 68; RESP 17; TEMP 98.7; O2SAT 97
== END 2024-07-16 13:41 | disposition home or self-care (01) ==
LOC: ER 09:29
DX: S92.334A Nondisplaced fracture of third metatarsal bone, right foot, initial encounter for closed fracture (principal); S92.344A Nondisplaced fracture of fourth metatarsal bone, right foot, initial encounter for closed fracture; J44.9 Chronic obstructive pulmonary disease, unspecified; I10 Essential (primary) hypertension; F17.210 Nicotine dependence, cigarettes, uncomplicated; Z98.890 Other specified postprocedural states; Z79.899 Other long term (current) drug therapy; W19.XXXA Unspecified fall, initial encounter; Y93.89 Activity, other specified; Y92.89 Other specified places as the place of occurrence of the external cause; Y99.8 Other external cause status
CPT/HCPCS: 29515; 73630